=== PATIENT | female | born 1985 | race African-American/Black ===

== ENCOUNTER 2016-06-29 21:22 | Emergency (ER) | payer OTHER ==
[~2016-06-29] VITALS: Ht 172.7 cm; Wt 102.1 kg
[~2016-06-29 21:22] MED LIST: IBUPROFEN 600600 M1 PO; PROMETHAZINE-C120 ML PO; VENTOLIN HFA 1818 GM INH; ZPAK PO; ZYRTEC10 M2 PO
[2016-06-29] MEDS ORDERED: TRINATE TABLET1 TAB PO (21:41)
[2016-06-29] MEDS ORDERED: PROAIR HFA8.5 GM INH (21:42)
[2016-06-29] MEDS ORDERED: TESSALON PERLE100 MG PO (22:55)
[2016-06-29 23:00] VITALS: BP 136/99
== END 2016-06-29 23:00 | disposition home or self-care (01) ==
LOC: ER 21:22
DX: J09.X2 Influenza due to identified novel influenza A virus with other respiratory manifestations (principal); Z88.0 Allergy status to penicillin; Z88.2 Allergy status to sulfonamides